=== PATIENT | female | born 1990 | race Two or more races ===

== ENCOUNTER 2019-05-12 02:00 | Emergency (ER) | payer MEDICAID ==
[~2019-05-12] VITALS: Ht 182.9 cm; Wt 68.2 kg
[~2019-05-12 02:00] MED LIST: PANT-47 PO
[2019-05-12 02:09] VITALS: BP 122/66
[2019-05-12] MEDS ORDERED: naproxen 500mg tablet PO ONE (03:40)
[2019-05-12] MEDS ORDERED: LIDOcaine 1% w/EPI 1:200,000 injection 10mL vial IM ONE (03:40)
[2019-05-12] MEDS ORDERED: HYDR-4383 PO (03:43)
[2019-05-12] MEDS ORDERED: SULF1TAB49 PO (03:43)
[2019-05-12] MEDS ORDERED: NAPR-56 PO (03:44)
[2019-05-12] MEDS ORDERED: sulfamethoxazole/trimethoprim DS (800/160mg) tablet PO ONE (03:45)
[2019-05-12] MEDS ORDERED: LIDOcaine 1% W/epiNEPHrine 1:100,000 20ml vial IJ ONE (03:45)
== END 2019-05-12 05:41 | disposition home or self-care (01) ==
LOC: ER 02:01
DX: N76.4 Abscess of vulva (principal); F15.90 Other stimulant use, unspecified, uncomplicated; Z79.899 Other long term (current) drug therapy
CPT/HCPCS: 56405; 87070; 87077; 87186; 99284

== ENCOUNTER 2020-02-28 01:46 | Emergency (ER) | payer MEDICAID ==
[~2020-02-28] VITALS: Ht 182.9 cm; Wt 77.3 kg
[~2020-02-28 01:46] MED LIST changes: +HYDR-4383 PO
[2020-02-28 01:56] VITALS: BP 121/90
[2020-02-28] MEDS ORDERED: CEPH500C5 PO (02:01)
[2020-02-28] MEDS ORDERED: SULF1TAB49 PO (02:01)
== END 2020-02-28 02:06 | disposition home or self-care (01) ==
LOC: ER 01:47
DX: L03.114 Cellulitis of left upper limb (principal); Z79.899 Other long term (current) drug therapy
CPT/HCPCS: 99283

== ENCOUNTER 2020-05-15 00:32 | Emergency (ER) | payer MEDICAID ==
[~2020-05-15] VITALS: Ht 182.9 cm; Wt 75.0 kg
[2020-05-15 00:36] VITALS: BP 134/82
[2020-05-15] MEDS ORDERED: SULF1TAB49 PO (01:16)
[2020-05-15] MEDS ORDERED: CEPH500C5 PO (01:16)
[2020-05-15] MEDS ORDERED: ERYT1OIN6 RIGHTEYE (01:16)
== END 2020-05-15 01:29 | disposition home or self-care (01) ==
LOC: ER 00:32
DX: H00.012 Hordeolum externum right lower eyelid (principal); F15.90 Other stimulant use, unspecified, uncomplicated; Z79.899 Other long term (current) drug therapy
CPT/HCPCS: 99283

== ENCOUNTER → 2021-02-02 | Emergency (ER) | payer MEDICAID ==
[~2021-02-02] VITALS: Ht 180.3 cm; Wt 77.2 kg
[~2021-02-02] MED LIST changes: +CEPH-585 PO; +DOXY100C43 PO
[2021-02-02 02:09] VITALS: BP 118/76
== END | disposition home or self-care (01) ==
LOC: ER 02:02
DX: L02.416 Cutaneous abscess of left lower limb (principal); F15.90 Other stimulant use, unspecified, uncomplicated; Z79.2 Long term (current) use of antibiotics; Z79.899 Other long term (current) drug therapy
CPT/HCPCS: 99283

== ENCOUNTER 2021-09-16 13:20 | Emergency (ER) | payer MEDICAID ==
[~2021-09-16] VITALS: Ht 182.9 cm; Wt 79.5 kg
[~2021-09-16 13:20] MED LIST changes: -DOXY100C43 PO
[2021-09-16 13:29] VITALS: BP 123/83
[2021-09-16] MEDS ORDERED: MUPI22OI30 TOP (13:34)
[2021-09-16] MEDS ORDERED: SULF1TAB49 PO (13:34)
== END 2021-09-16 13:58 | disposition home or self-care (01) ==
LOC: ER 13:20
DX: L02.414 Cutaneous abscess of left upper limb (principal); L03.114 Cellulitis of left upper limb; F17.200 Nicotine dependence, unspecified, uncomplicated; F15.90 Other stimulant use, unspecified, uncomplicated; Z79.2 Long term (current) use of antibiotics; Z79.899 Other long term (current) drug therapy
CPT/HCPCS: 99283

== ENCOUNTER 2022-09-23 07:21 | Emergency (ER) | payer MEDICAID ==
[~2022-09-23] VITALS: Ht 185.4 cm; Wt 77.0 kg
[~2022-09-23 07:21] MED LIST changes: -CEPH-585 PO
--- NOTE | 2022-09-23 08:47 | NUR ---
Pt here for med clearance to go to rehab. Hoping to go to [facility], but bed is not open at this time. VS and assessment complete.
[2022-09-23 09:28] LABS: BASOPHILS % (AUTO) 0.9 % (0-1); EOSINOPHILS # (AUTO) 0.1 X10'3 (0-0.9); EOSINOPHILS % (AUTO) 2.4 % (0-6); HEMATOCRIT 39.2 % (35.0-45.0); HEMOGLOBIN 13.3 g/dl (12.0-16.0); LYMPHOCYTES % (AUTO) 39.2 % (21-51); MEAN CORPUSCULAR HEMOGLOBIN 29.6 PG (27.0-31.0); MEAN PLATELET VOLUME 8.7 FL (7.4-10.4); MONOCYTES # (AUTO) 0.4 X10'3 (0-0.9); MONOCYTES % (AUTO) 7.4 % (2-12); NEUTROPHILS # (AUTO) 2.5 X10'3 (1.8-7.7); NEUTROPHILS % (AUTO) 50.1 % (42-75); PLATELET COUNT 195 X10'3 (140-440); RED BLOOD COUNT 4.51 X10'6 (4.20-5.60); RED CELL DISTRIBUTION WIDTH 12.2 % (11.5-14.5)
[2022-09-23 09:40] LABS: ALANINE AMINOTRANSFERASE 24 U/L (12-78); ALBUMIN 3.9 G/DL (3.4-5.0); ALBUMIN/GLOBULIN RATIO 1.3 (1.1-1.5); ALKALINE PHOSPHATASE 64 IU/L (46-116); ANION GAP 5 (8-16); ASPARTATE AMINO TRANSFERASE 20 U/L (10-37); BILIRUBIN,TOTAL 0.4 MG/DL (0.1-1.0); BLOOD UREA NITROGEN 9 MG/DL (7-18); BUN/CREATININE RATIO 9.2 (6.6-38.0); CALCIUM 9.3 MG/DL (8.5-10.1); CHLORIDE 104 MMOL/L (99-107); CREATININE 0.98 MG/DL (0.40-0.90); GLUCOSE 82 MG/DL (70-104); POTASSIUM 4.1 MMOL/L (3.5-5.1); SODIUM 138 MMOL/L (135-145); TOTAL CARBON DIOXIDE 28.9 MMOL/L (24-32); eGFR 65 ML/MIN
[2022-09-23 09:47] LABS: URINE HCG NEGATIVE (NEG)
[2022-09-23 09:48] LABS: ETHANOL < 0.010 GM/DL (0.0-0.010)
[2022-09-23 09:51] LABS: CLARITY,URINE CLEAR (Clear); GLUCOSE, URINE NEGATIVE (Neg); KETONES,URINE TRACE mg/dl (Neg); LEUKOCYTE ESTERASE ,URINE NEGATIVE (Neg); NITRITES, URINE NEGATIVE (Neg); OCCULT BLOOD,URINE NEGATIVE (Neg); PROTEIN,URINE NEGATIVE (Neg)
[2022-09-23 09:53] LABS: COLOR,URINE DARK YELLOW (Yellow); UA COLLECTION TYPE CLN CATCH MIDSTREAM
[2022-09-23 10:00] LABS: URINE AMPHETAMINE SCREEN POSITIVE (Neg); URINE BARBITUATE SCREEN NEGATIVE (Neg); URINE BENZODIAZEPINES SCREEN NEGATIVE (Neg); URINE CANNABINOID SCREEN POSITIVE (Neg); URINE COCAINE SCREEN NEGATIVE (Neg); URINE METHADONE SCREEN POSITIVE (Neg); URINE OPIATE SCREEN NEGATIVE (Neg); URINE PHENCYCLIDINE SCREEN NEGATIVE (Neg)
--- NOTE | 2022-09-23 10:00 | NUR ---
Met with patient in regards to substance use and patient wanting information on MAT treatment. I talked to patient about different treatment options. Patient is currently waiting for a bed at [facility]. Patient currently taking methadone but interested in switching to Suboxone. I gave patient a card for [facility] and my card to call me with any questions.
[2022-09-23 10:26] VITALS: BP 112/76
== END 2022-09-23 10:28 ==
LOC: ER 07:22
DX: F19.10 Other psychoactive substance abuse, uncomplicated (principal); F17.200 Nicotine dependence, unspecified, uncomplicated; F11.90 Opioid use, unspecified, uncomplicated
CPT/HCPCS: 36415; 80053; 80305; 80320; 81003; 81025; 84443; 85025; 99283

== ENCOUNTER 2023-10-21 13:09 | Emergency (ER) | payer MEDICAID ==
[~2023-10-21] VITALS: Ht 185.4 cm; Wt 82.7 kg
[2023-10-21 13:15] VITALS: BP 130/85; PULSE 87; RESP 16; TEMP 98; O2SAT 100
[2023-10-21] MEDS ORDERED: DOXY-1 PO (13:49)
[2023-10-21] MEDS ORDERED: NAPR-56 PO (13:49)
== END 2023-10-21 13:55 | disposition home or self-care (01) ==
LOC: ER 13:10
DX: K04.7 Periapical abscess without sinus (principal); K08.89 Other specified disorders of teeth and supporting structures; Z79.899 Other long term (current) drug therapy
CPT/HCPCS: 99283